=== PATIENT | male | born 1975 | race American Indian/Alaskan Native ===

== ENCOUNTER 2021-08-12 05:45 | Observation (INO) | payer SELFPAY ==
[2021-08-12] MEDS ORDERED: IPRATROPIUM/ALBUTEROL SULFATE 3 ML AMPUL.NEB IH ONE (05:50)
[2021-08-12] MEDS ORDERED: IPRATROPIUM 0.02% NEBU 2.5 ML IH ONE (06:12)
[2021-08-12] MEDS ORDERED: ALBUTEROL 2.5 MG/3 ML NEBU IH ONE (06:12)
--- NOTE | 2021-08-12 06:19 | XRay Report ---
CHEST 1 VIEW 08/12/2021 5:58 AM INDICATION / CLINICAL INFORMATION: Respiratory distress. COMPARISON: None available. FINDINGS: SUPPORT DEVICES: None. HEART / MEDIASTINUM: The heart size and pulmonary vasculature are normal. LUNGS / PLEURA: The lungs are hyperinflated. Nipple shadows overlie both lower lung zones. There is m ild vague parenchymal opacity in the right lower lung medially. No pleural effusion is seen. No pneum othorax. ADDITIONAL FINDINGS: There is an old healed fracture the left seventh posterior rib. IMPRESSION: 1. Hyperinflation of the lungs may be related to asthma or emphysema. 2. Mild pneumonia or atelectasis in the right lower lung medially. Signer Name: Floyd Richard MD Signed: 08/12/2021 6:14 AM Workstation Name: [id number]
[2021-08-12 06:36] LABS: Basophils % (Auto) 0.5 % (0.0-1.8); Eosinophils # (Auto) 0.3 K/mm3 (0.0-0.4); Eosinophils % (Auto) 7.5 % (0.0-4.3); Hematocrit 42.4 % (35.5-45.6); Hemoglobin 13.6 gm/dl (11.8-15.2); Lymphocytes # (Auto) 1.6 K/mm3 (1.2-5.4); Lymphocytes % (Auto) 36.9 % (13.4-35.0); Mean Corpuscular HGB Conc 32 % (32-34); Mean Corpuscular Volume 95 fl (84-94); Monocytes # (Auto) 0.5 K/mm3 (0.0-0.8); Monocytes % (Auto) 12.1 % (0.0-7.3); Platelet Count 139 K/mm3 (140-440); Red Blood Count 4.48 M/mm3 (3.65-5.03); Red Cell Distribution Width 12.6 % (13.2-15.2)
[2021-08-12 07:00] LABS: BUN/Creatinine Ratio 18; Blood Urea Nitrogen 14 mg/dL (9-20); Calcium 8.8 mg/dL (8.4-10.2); Hemolysis Index 11
[2021-08-12] MEDS ORDERED: methylPREDNISolone Sod Succinate 125 MG/2 ML INJ IV NR (07:30)
[2021-08-12] MEDS ORDERED: MAGNESIUM SULFATE 2 GM/50 ML BAG IV NR (07:30)
--- NOTE | 2021-08-12 08:55 | Emergency Department Report ---
ED Shortness of Breath HPI - General Chief Complaint: Dyspnea/Respdistress Stated Complaint: LOW O2 Time Seen by Provider: 08/12/21 05:48 Source: patient Mode of arrival: Ambulatory Limitations: No Limitations - History of Present Illness Initial Comments: Patient is a 46-year-old F [place] male with a past medical history of asthma who is presenting with 3 days of shortness of breath. Patient has had a cough shortness of breath and increased work of breathing. Patient does have an inhaler at home but states is not helping. Denies fevers chills nausea vomiting diarrhea body aches or decreased taste and smell. Patient states he is vaccinated against COVID-19. Patient arrived via EMS. O2 saturations in the low 80s - Related Data Allergies Allergy/AdvReac Type Severity Reaction Status Date / Time No Known Allergies Allergy Unverified 08/12/21 07:04 ED Review of Systems ROS: Stated complaint: LOW O2 Other details as noted in HPI Comment: All other systems reviewed and negative ED Past Medical Hx - Past Medical History Previous Medical History?: Yes Hx Asthma: Yes Hx HIV: Yes (States recently diagnosed) - Social History Smoking Status: Unknown if ever smoked ED Physical Exam - General Limitations: No Limitations General appearance: alert, in no apparent distress - Head Head exam: Present: atraumatic, normocephalic - Eye Eye exam: Present: normal appearance - ENT ENT exam: Present: mucous membranes moist - Neck Neck exam: Present: normal inspection - Respiratory Respiratory exam: Present: respiratory distress, wheezes, decreased breath sounds. Absent: normal lung sounds bilaterally, rales, rhonchi - Cardiovascular Cardiovascular Exam: Present: regular rate, normal rhythm, normal heart sounds. Absent: systolic murmur, diastolic murmur, rubs, gallop - GI/Abdominal GI/Abdominal exam: Present: soft, normal bowel sounds. Absent: distended, tenderness, guarding, rebound - Rectal Rectal exam: Present: deferred - Extremities Exam Extremities exam: Present: normal inspection - Back Exam Back exam: Present: normal inspection - Neurological Exam Neurological exam: Present: alert, oriented X3 - Psychiatric Psychiatric exam: Present: normal affect, normal mood - Skin Skin exam: Present: warm, dry, intact, normal color. Absent: rash ED Course Vital Signs 08/12/21 08/12/21 08/12/21 06:49 07:04 08:13 Temperature 98.3 F Pulse Rate 66 Pulse Rate [ 88 Bilateral Throughout] Respiratory 20 Rate Respiratory 20 Rate [Bilateral Throughout] Blood Pressure Blood Pressure 115/78 [Right] O2 Sat by Pulse 100 100 Oximetry 08/12/21 08/12/21 08/12/21 08:14 08:15 08:17 Temperature Pulse Rate Pulse Rate [ 95 H Bilateral Throughout] Respiratory Rate Respiratory 20 Rate [Bilateral Throughout] Blood Pressure 98/60 Blood Pressure [Right] O2 Sat by Pulse 100 96 Oximetry ED Medical Decision Making - Lab Data Result diagrams: 08/12/21 06:06 08/12/21 06:06 Lab Results 08/12/21 08/12/21 Range/Units 06:06 06:06 WBC 4.2 L (4.5-11.0) K/mm3 RBC 4.48 (3.65-5.03) M/mm3 Hgb 13.6 (11.8-15.2) gm/dl Hct 42.4 (35.5-45.6) % MCV 95 H (84-94) fl MCH 30 (28-32) pg MCHC 32 (32-34) % RDW 12.6 L (13.2-15.2) % Plt Count 139 L (140-440) K/mm3 Lymph % (Auto) 36.9 H (13.4-35.0) % [place] % (Auto) 12.1 H (0.0-7.3) % Eos % (Auto) 7.5 H (0.0-4.3) % Baso % (Auto) 0.5 (0.0-1.8) % Lymph # (Auto) 1.6 (1.2-5.4) K/mm3 [place] # (Auto) 0.5 (0.0-0.8) K/mm3 Eos # (Auto) 0.3 (0.0-0.4) K/mm3 Baso # (Auto) 0.0 (0.0-0.1) K/mm3 Seg Neutrophils % 43.0 (40.0-70.0) % Seg Neutrophils # 1.8 (1.8-7.7) K/mm3 Sodium 134 L (137-145) mmol/L Potassium 4.8 (3.6-5.0) mmol/L Chloride 99.3 (98-107) mmol/L Carbon Dioxide 27 (22-30) mmol/L Anion Gap 13 mmol/L BUN 14 (9-20) mg/dL Creatinine 0.8 (0.8-1.3) mg/dL Estimated GFR > 60 ml/min BUN/Creatinine Ratio 18 % Glucose 101 H (75-100) mg/dL Calcium 8.8 (8.4-10.2) mg/dL Magnesium 1.90 (1.7-2.3) mg/dL - Radiology Data CHEST 1 VIEW 08/12/2021 5:58 AM INDICATION / CLINICAL INFORMATION: Respiratory distress. COMPARISON: None available. FINDINGS: SUPPORT DEVICES: None. HEART / MEDIASTINUM: The heart size and pulmonary vasculature are normal. LUNGS / PLEURA: The lungs are hyperinflated. Nipple shadows overlie both lower lung zones. There is mild vague parenchymal opacity in the right lower lung medially. No pleural effusion is seen. No pneumothorax. ADDITIONAL FINDINGS: There is an old healed fracture the left seventh posterior rib. IMPRESSION: 1. Hyperinflation of the lungs may be related to asthma or emphysema. 2. Mild pneumonia or atelectasis in the right lower lung medially. Signer Name: Floyd Richard MD Signed: 08/12/2021 6:14 AM Workstation Name: [id number] - Medical Decision Making Patient received hour-long neb treatment steroids and magnesium. States he feels much improved and he is moving air better however patient still has a wheeze and his O2 sats are in the mid 80s on room air. Patient placed on 2 L of oxygen. Patient to be admitted to the hospitalist service for further management. Critical care attestation.: If time is entered above; I have spent that time in minutes in the direct care of this critically ill patient, excluding procedure time. ED Disposition Clinical Impression: Hypoxia Asthma exacerbation Qualifiers: Asthma severity: moderate Asthma persistence: unspecified Qualified Code(s): J45.901 - Unspecified asthma with (acute) exacerbation Pneumonia Qualifiers: Pneumonia type: due to unspecified organism Laterality: right Lung location: lower lobe of lung Qualified Code(s): J18.9 - Pneumonia, unspecified organism Disposition: 09 ADMITTED INPATIENT Is pt being admited?: Yes Does the pt Need Aspirin: No Condition: Stable Instructions: Bacterial Pneumonia (ED) Time of Disposition: 09:12
[2021-08-12] MEDS ORDERED: AZITHROMYCIN/NS 500 MG/250 ML 500 MG/250 ML BAG IV ONE (09:05)
[2021-08-12] MEDS ORDERED: cefTRIAXone/NS 2 GM/100 ML 2 GM/100 ML BAG IV ONE (09:05)
[2021-08-12] MEDS ORDERED: SODIUM CHLORIDE 0.9% 1000 ML 1,000 ML IV ONE (09:13)
--- NOTE | 2021-08-12 09:16 | Progress Note ---
Hospitalist Physical - Constitutional Vitals: Temp Pulse Resp BP Pulse Ox 98.3 F 95 H 20 98/60 96 08/12/21 07:04 08/12/21 08:14 08/12/21 08:14 08/12/21 08:15 08/12/21 08:17 Results - Labs CBC & Chem 7: 08/12/21 06:06 08/12/21 06:06 Labs: Laboratory Last Values WBC 4.2 K/mm3 (4.5-11.0) L 08/12/21 06:06 RBC 4.48 M/mm3 (3.65-5.03) 08/12/21 06:06 Hgb 13.6 gm/dl (11.8-15.2) 08/12/21 06:06 Hct 42.4 % (35.5-45.6) 08/12/21 06:06 MCV 95 fl (84-94) H 08/12/21 06:06 MCH 30 pg (28-32) 08/12/21 06:06 MCHC 32 % (32-34) 08/12/21 06:06 RDW 12.6 % (13.2-15.2) L 08/12/21 06:06 Plt Count 139 K/mm3 (140-440) L 08/12/21 06:06 Lymph % (Auto) 36.9 % (13.4-35.0) H 08/12/21 06:06 [place] % (Auto) 12.1 % (0.0-7.3) H 08/12/21 06:06 Eos % (Auto) 7.5 % (0.0-4.3) H 08/12/21 06:06 Baso % (Auto) 0.5 % (0.0-1.8) 08/12/21 06:06 Lymph # (Auto) 1.6 K/mm3 (1.2-5.4) 08/12/21 06:06 [place] # (Auto) 0.5 K/mm3 (0.0-0.8) 08/12/21 06:06 Eos # (Auto) 0.3 K/mm3 (0.0-0.4) 08/12/21 06:06 Baso # (Auto) 0.0 K/mm3 (0.0-0.1) 08/12/21 06:06 Seg Neutrophils % 43.0 % (40.0-70.0) 08/12/21 06:06 Seg Neutrophils # 1.8 K/mm3 (1.8-7.7) 08/12/21 06:06 Sodium 134 mmol/L (137-145) L 08/12/21 06:06 Potassium 4.8 mmol/L (3.6-5.0) 08/12/21 06:06 Chloride 99.3 mmol/L (98-107) 08/12/21 06:06 Carbon Dioxide 27 mmol/L (22-30) 08/12/21 06:06 Anion Gap 13 mmol/L 08/12/21 06:06 BUN 14 mg/dL (9-20) 08/12/21 06:06 Creatinine 0.8 mg/dL (0.8-1.3) 08/12/21 06:06 Estimated GFR > 60 ml/min 08/12/21 06:06 BUN/Creatinine Ratio 18 % 08/12/21 06:06 Glucose 101 mg/dL (75-100) H 08/12/21 06:06 Calcium 8.8 mg/dL (8.4-10.2) 08/12/21 06:06 Magnesium 1.90 mg/dL (1.7-2.3) 08/12/21 06:06 Active Medications - Current Medications Current Medications: Generic Name Dose Route Start Last Admin Trade Name Dragan PRN Reason Stop Dose Admin Azithromycin 500 mg in 250 mls @ 250 mls/hr 08/12/21 09:05 08/12/21 09:13 Zithromax/Ns IV 08/12/21 10:04 250 mls/hr ONCE ONE Administration Protocol Ceftriaxone Sodium 2 gm in 100 mls @ 200 mls/hr 08/12/21 09:05 08/12/21 09:13 Rocephin/Ns 2 Gm/100 Ml IV 08/12/21 09:34 200 mls/hr ONCE ONE Administration Protocol Sodium Chloride 1,000 mls @ 999 mls/hr 08/12/21 09:13 Nacl 0.9% 1000 Ml IV 08/12/21 10:13 BOLUS ONE
[2021-08-12] MEDS ORDERED: ENOXAPARIN 40 MG/0.4 ML INJ SUB-Q SCH (10:00)
[2021-08-12 10:36] LABS: C-Reactive Protein 0.2 mg/dL (0.00-1.30)
[2021-08-12 10:47] VITALS: BP 115/53
== END 2021-08-12 10:50 | disposition home or self-care (01) ==
LOC: ED 05:45 → 3A 09:13
PROVIDERS: ADMIT Internal Medicine; ATTEND Internal Medicine
DX: J45.901 Unspecified asthma with (acute) exacerbation (principal); Z20.822 Contact with and (suspected) exposure to COVID-19; R09.02 Hypoxemia; J18.9 Pneumonia, unspecified organism; Z21 Asymptomatic human immunodeficiency virus [HIV] infection status
CPT/HCPCS: 36415; 36600; 71045; 80048; 82728; 83615; 83735; 85025; 85379; 86140; 87040; 94644; 96365; 96367; 96368; 96372; 96375; 99284; G0378; J0456; J0696; J1650; J2930; J3475; J7030; U0003; Q0162

== ENCOUNTER 2022-01-13 02:31 | Emergency (ER) | payer SELFPAY ==
[2022-01-13 02:39] VITALS: BP 115/64
== END 2022-01-13 06:52 | disposition left against medical advice (07) ==
LOC: ED 02:31
DX: J45.909 Unspecified asthma, uncomplicated (principal); Z53.21 Procedure and treatment not carried out due to patient leaving prior to being seen by health care provider